=== PATIENT | female | born 1980 | race Caucasian/White ===

== ENCOUNTER 2023-05-29 15:35 | Outpatient (CLI) | payer OTHER, SELFPAY | END 2023-05-29 15:36 | disposition home or self-care (01) | LOC: AMB 06-01 09:37 | PROVIDERS: Visit Provider Family Medicine | DX: R06.09 Other forms of dyspnea (principal) | CPT/HCPCS: A0425; A0427 ==

== ENCOUNTER 2023-05-29 15:56 | Emergency (ER) | payer OTHER, SELFPAY ==
[2023-05-29 16:06] VITALS: BP 123/93; PULSE 75; RESP 16; TEMP 36.4; O2SAT 99; BMI 33.1
--- NOTE | 2023-05-29 16:16 | ED.GENADULT ---
HPI - General Adult General Chief complaint: Allergic Reaction Stated complaint: Allergic reaction Time Seen by Provider: 05/29/23 15:58 Source: patient Mode of arrival: ambulatory Limitations: no limitations History of Present Illness HPI narrative: 43-year-old female with a history of daily allergies in insomnia presents today after which she describes as an allergic reaction to a clot of perfume that she walked through. Patient states that around 12 30 in the afternoon she walked through a cloud of perfume in the locker room that smell like vanilla and shortly thereafter began to feel like she could not breathe. She felt like her throat was closing up. She states that it was a slow buildup and she did not feel the need to use her EpiPen until around 3:00 p.m. in the afternoon. She also states that she had tingling in both of her hands. She called the ambulance when she used the EpiPen was brought to the ER for further management. Patient states that she feels completely fine now she states that her throat no longer feels like it is closing. She denies feeling short of breath. She denies swelling of the lips or tongue. She denies confusion, dizziness or headache. She is no longer tingling. Patient gets her care at the [facility]. She states that she takes 1 medication at night for sleep but she can not tell me what it is. By the time the patient is seen in the ER, 1 hour and 20 minutes has elapsed since the time she injected herself. Related Data Home Medications Medication Instructions Recorded Confirmed epinephrine 0.3 mg/0.3 mL 0.3 ml IM Q5-15M PRN 05/29/23 05/29/23 injection, auto-injector Allergies Allergy/AdvReac Type Severity Reaction Status Date / Time bee pollen Allergy Severe Anaphylaxis Verified 05/29/23 16:06 Review of Systems Status of ROS: Reports: 10 or more systems reviewed and unremarkable except as noted in History and below Exam Narrative: Exam Narrative: Well-nourished well-developed patient in no acute distress. Alert and oriented. Answers questions appropriately. Mood and affect are appropriate. Thoughts are goal oriented and rational. No tangential or magical thinking noted. Patient speaks in full sentences without needing to catch her breath. HEENT: Normocephalic atraumatic. Pupils are equally round reactive to light. Extraocular muscles are intact. Conjunctivae are moist without any icterus noted. Moist mucous membranes. Posterior pharynx is normal. Neck is soft without any lymphadenopathy or thyromegaly. No masses are appreciated. Cardiovascular: Heart is regular rate and rhythm S1 and S2 are present without any murmurs. Lungs: Clear to auscultation bilaterally no wheezes rhonchi or rales are appreciated. Patient takes deep breaths without any discomfort. Abdomen: Soft and nontender nondistended with normal bowel sounds. Extremities: Bilateral lower extremities are without edema. Normal DP and PT pulses. Skin: Well perfused without any obvious rashes. Const: Vital Signs, click to edit/add: Vital Signs - 24 hr 05/29/23 16:06 Temperature 97.6 F Pulse Rate [Pulse Oximeter] 75 Respiratory Rate 16 Blood Pressure [Le ft Upper Arm] 123/93 H Pulse Oximetry 99 Oxygen Delivery Me thod Room Air Course Vital Signs Vital signs: Initial Vital Signs Temperature 97.6 F 05/29/23 16:06 Temperature Source Temporal Artery Scan 05/29/23 16:06 Pulse Rate 75 05/29/23 16:06 Respiratory Rate 16 05/29/23 16:06 Blood Pressure 123/93 H 05/29/23 16:06 Blood Pressure Mean 103 05/29/23 16:06 Blood Pressure Position Semi-Fowlers 05/29/23 16:06 Pulse Oximetry 99 05/29/23 16:06 Oxygen Delivery Method Room Air 05/29/23 16:06 Vital Signs Temperature 97.6 F 05/29/23 16:06 Pulse Rate 75 05/29/23 16:06 Respiratory Rate 16 05/29/23 16:06 Blood Pressure 123/93 H 05/29/23 16:06 Pulse Oximetry 99 05/29/23 16:06 Oxygen Delivery Method Room Air 05/29/23 16:06 Temperature 97.6 F 05/29/23 16:06 Pulse Rate 75 05/29/23 16:06 Respiratory Rate 16 05/29/23 16:06 Blood Pressure 123/93 H 05/29/23 16:06 Pulse Oximetry 99 05/29/23 16:06 Oxygen Delivery Method Room Air 05/29/23 16:06 Medical Decision Making MDM Narrative Medical decision making narrative: 43-year-old female with a reaction to perfume. Patient completely asymptomatic at this time. No further management needed. Discharge Plan Discharge Clinical Impression: Allergic reaction Patient Disposition: Home, Self-Care Condition: Stable Additional Instructions: Recommend you follow-up with primary care provider this coming week. Return to ER if symptoms return. Prescriptions: No Action epinephrine 0.3 mg/0.3 mL auto-injector 0.3 ml IM Q5-15M PRN Rx Instructions: do not exceed 3 doses per episode Stand Alone Forms: MyHealth Info Instructions
[2023-05-29 16:20] VITALS: BP 127/86; PULSE 71; RESP 16; O2SAT 99
== END 2023-05-29 16:29 | disposition home or self-care (01) ==
LOC: ED 16:28
PROVIDERS: Emergency Provider Family Medicine
DX: T78.40XA Allergy, unspecified, initial encounter (principal)
CPT/HCPCS: 99282; 99283